=== PATIENT | female | born 1950 | race Hispanic/Latino ===

== ENCOUNTER 2017-10-18 17:16 | Emergency (ER) | payer MEDICARE ==
[2017-10-18 17:17] VITALS: BMI 30.4
--- NOTE | 2017-10-18 17:50 | ED PDOC ---
Arrival/HPI - General Chief Complaint: Anxiety Time Seen by Provider: 10/18/17 17:30 Historian: Patient - History of Present Illness Narrative History of Present Illness (Text): 10/18/17 17:38 A 67 year old female, whose past medical history includes URI, myasthenia gravis and non-Hodgkins lymphoma s/p chemo, presents to the emergency department complaining of pressure-like chest discomfort bilaterally. Patient reports her cat last night and afterwards patient began experiencing symptom. Episode lasted approximately 30 minutes. She notes called Dr. Yoon and had EKG performed, which revealed normal findings. Patient was recommended to visit the [place] ER for further evaluation. She mentions having anxiety in the past. Patient denies any shortness of breath, palpitations, cough , fever, or any other complaints. Also, patient mentions taking physical therapy due to last visit (08/24/2017) with chief complaint of mechanical falls and diagnosed with mild CVA at the time. PMD: Dr. 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 SITE INFECTION - Pulmonary Hx Respiratory Disorders: No - Neurological HX Cerebrovascular Accident: Yes (07/2017) Hx Syncope: Yes - HEENT Other/Comment: wears eyeglass - Renal Hx Renal Disorder: No - Endocrine/Metabolic Hx Endocrine Disorders: No - Hematological/Oncological Hx Cancer: Yes (BONE MALIGNANCY) Hx Lymphoma: Yes - Integumentary Hx Dermatological Disorder: No - Musculoskeletal/Rheumatological Hx Musculoskeletal Disorders: Yes (Bone cancer, on chemo) Hx Falls: Yes Other/Comment: inclusion body myositis - Gastrointestinal Hx Gastrointestinal Disorders: No - Genitourinary/Gynecological Hx Genitourinary Disorders: No - Psychiatric Hx Psychophysiologic Disorder: No Hx Substance Use: No - Surgical History Other/Comment: Thymectomy, 15 yrs ago; Biopsy on right ankle - Anesthesia Hx Anesthesia: Yes Hx Anesthesia Reactions: No Hx Malignant Hyperthermia: No Family/Social History - Physician Review Nursing Documentation Reviewed: Yes Family/Social History: No Known Family HX Smoking Status: Former Smoker Hx Alcohol Use: No Hx Substance Use: No Allergies/Home Meds Allergies/Adverse Reactions: Allergies codeine Allergy (Verified 10/18/17 17:30) RASH Penicillins Allergy (Verified 10/18/17 17:30) RASH Review of Systems - Physician Review All systems were reviewed & negative as marked: Yes - Review of Systems Constitutional: absent: Fevers Respiratory: absent: SOB, Cough Cardiovascular: Chest Pain (bilateraly pressure-like chest discomfort). absent : Palpitations Physical Exam Vital Signs Reviewed: Yes Vital Signs Temp Pulse Resp BP Pulse Ox 10/18/17 22:17 88 20 125/72 97 10/18/17 17:41 98.1 F 95 H 21 117/65 100 Temperature: Afebrile Blood Pressure: Normal Pulse: Regular Respiratory Rate: Normal Appearance: Positive for: Well-Appearing Pain Distress: None Mental Status: Positive for: Alert and Oriented X 3 - Systems Exam Head: Present: Atraumatic, Normocephalic Pupils: Present: PERRL Extroacular Muscles: Present: EOMI Conjunctiva: Present: Normal Mouth: Present: Moist Mucous Membranes Neck: Present: Normal Range of Motion Respiratory/Chest: Present: Clear to Auscultation, Good Air Exchange. No: Respiratory Distress, Accessory Muscle Use Cardiovascular: Present: Regular Rate and Rhythm, Normal S1, S2. No: Murmurs Abdomen: Present: Normal Bowel Sounds. No: Tenderness, Distention, Peritoneal Signs Back: Present: Normal Inspection Upper Extremity: Present: Normal Inspection. No: Cyanosis, Edema Lower Extremity: Present: Normal Inspection. No: Edema Neurological: Present: GCS=15, CN II-XII Intact, Speech Normal Skin: Present: Warm, Dry, Normal Color. No: Rashes Psychiatric: Present: Alert, Oriented x 3, Normal Insight, Normal Concentration Medical Decision Making ED Course and Treatment: 10/18/17 17:42 Impression: 67 year old female with pressure-like chest discomfort bilaterally. Differential Diagnosis included but are not limited to: Chest pain rule out Anxiety vs. ACS Plan: -- EKG -- Chest X-ray -- Labs -- Reassess and disposition Prior Visits: Notes and results from previous visits were reviewed. Patient was last seen in the emergency department on 08/24/2017 for mechanical falls. Patient was admitted. Progress Notes: EKG: Ordered, reviewed, and independently interpreted the EKG. Rate : 94 BPM Rhythm : NSR Interpretation : No ST-segment elevations. Comparison : No previous EKG for comparison. 10/18/17 21:44 DEAN Score of 1. Heart Score of 2. Patient is at a very low risk for cardiac cause of chest pain. She was observed in the ED with no chest pain for over 3 hours. She had no changes that were concerning on the court monitor. Chest X-ray reveals to be negative and Troponin is negative x 2. I have discussed the results and plan with the patient, who expresses understanding. Patient in agreement with plan to be discharged home. Patient will follow up with Dr. Laguerre and I recommended she make sure she follows up with a machine container washer. I referred her to Dr. Mora. - Lab Interpretations Lab Results: 10/18/17 18:15 10/18/17 18:15 Lab Results 10/18/17 21:00: Lactate Dehydrogenase 346, Total Creatine Kinase 22 L, Troponin I < 0.01 10/18/17 18:15: Sodium 143, Potassium 3.9, Chloride 103, Carbon Dioxide 30, Anion Gap 13, BUN 15, Creatinine 0.7, Est GFR ( Amer) > 60, Est GFR (Non- Af Amer) > 60, Random Glucose 103, Calcium 10.8 H, Magnesium 1.4 L, Total Bilirubin 0.8, AST 48 H D, ALT 35, Alkaline Phosphatase 63, Lactate Dehydrogenase 351, Total Creatine Kinase 24 L, Troponin I < 0.01, Total Protein 7.6, Albumin 3.6, Globulin 4.0, Albumin/Globulin Ratio 0.9 L 10/18/17 18:15: WBC 5.4, RBC 5.73, Hgb 14.1, Hct 43.7, MCV 76.3 L, MCH 24.6 L, MCHC 32.3, RDW 20.3 H, Plt Count 219, MPV 9.6, Gran % 49.0 L, Lymph % (Auto) 36.1 H, Coke % (Auto) 11.9 H, Eos % (Auto) 2.4, Baso % (Auto) 0.6, Gran # 2.64, Lymph # (Auto) 1.9, Coke # (Auto) 0.6, Eos # (Auto) 0.1, Baso # (Auto) 0.03 - RAD Interpretation Radiology Orders: 10/18/17 17:42 CHEST PORTABLE [RAD] Stat - Medication Orders Current Medication Orders: Discontinued Medications Magnesium Oxide (Mag-Ox) 400 mg PO STAT STA Stop: 10/18/17 18:47 DEAN Risk Score for UA/NSTEMI - DEAN Risk Score Age > 64: YES 3 or more CAD Risk Factors: NO Known CAD (Stenosis greater than 50%): NO Aspirin use in past 7 days: NO Severe Angina: NO EKG ST changes greater than 0.5mm: NO Positive Cardiac Marker: NO DEAN Score: 1 % risk at 14 days of: all cause mortality, new or recurrent LA, or severe recurrent ischemia requiring urgen revascularization: 5% - Scribe Statement The provider has reviewed the documentation as recorded by the Fahad Vega Provider Scribe Attestation: All medical record entries made by the Scribe were at my direction and personally dictated by me. I have reviewed the chart and agree that the record accurately reflects my personal performance of the history, physical exam, medical decision making, and the department course for this patient. I have also personally directed, reviewed, and agree with the discharge instructions and disposition. Disposition/Present on Arrival - Present on Arrival Any Indicators Present on Arrival: No History of DVT/PE: No History of Uncontrolled Diabetes: No Urinary Catheter: No History of Decub. Ulcer: No History Surgical Site Infection Following: None - Disposition Have Diagnosis and Disposition been Completed?: Yes Diagnosis: Chest pain Disposition: HOME/ ROUTINE Disposition Time: 22:28 Patient Plan: Discharge Condition: IMPROVED Discharge Instructions (ExitCare): Chest Pain (ED) Additional Instructions: Arleen, thank you for letting us take care of you today. Your provider was Dr. Calderon. You were treated for Dr. Ny Cruz. The emergency medical care you received today was directed at your acute symptoms. If you were prescribed any medication, please fill it and take as directed. It may take several days for your symptoms to resolve. Return to the Emergency Department if your symptoms worsen, do not improve, or if you have any other problems. Please contact your doctor or call one of the physicians/clinics you have been referred to that are listed on the Patient Visit Information form that is included in your discharge packet. Bring any paperwork you were given at discharge with you along with any medications you are taking to your follow up visit. Our treatment cannot replace ongoing medical care by a primary care provider (PCP) outside of the emergency department. Thank you for allowing the [facility] team to be part of your care today. If you had an X-Ray or CT scan: A Radiologist will review the ED reading if any change in treatment is needed we will contact you. If you had a blood, urine, or wound culture: It will take several days for the results, if any change in treatment is needed we will contact you. If you had an STI test: It will take 48 hours for the results. Please call after 1 week if you have not heard back. Referrals: Adrien Laguerre MD [Family Provider] - Follow up with primary Forms: [employer] (Chinese), WORK NOTE
[2017-10-18 17:54] VITALS: TEMP 98.1
[2017-10-18 18:33] LABS: BASO # 0.03 K/mm3 (0.0-2.0); BASO % 0.6 % (0.0-3.0); EOS # 0.1 (0.0-0.7); EOS % 2.4 % (1.5-5.0); GRAN # 2.64 (1.4-6.5); HEMOGLOBIN 14.1 g/dL (12.0-16.0); LYMPH # 1.9 (1.2-3.4); LYMPH % 36.1 % (22.0-35.0); MEAN CELL VOLUME 76.3 fl (80.0-105.0); MEAN CORPUSCULAR HEMOGLOBIN 24.6 pg (25.0-35.0); MEAN CORPUSCULAR HGB CONC 32.3 g/dl (31.0-37.0); MEAN PLATELET VOLUME 9.6 fl (7.0-11.0); MONO # 0.6 (0.1-0.6); MONO % 11.9 % (1.0-6.0); RBC 5.73 10^6/uL (3.5-6.1); RED CELL DISTRIBUTION WIDTH 20.3 % (11.5-14.5); WHITE BLOOD COUNT 5.4 10^3/ul (4.5-11.0)
[2017-10-18 18:45] LABS: ALB/GLOB RATIO 0.9 (1.1-1.8); ALBUMIN 3.6 g/dL (3.0-4.8); ALT/SGPT 35 U/L (7-56); AST/SGOT 48 U/L (14-36); BLOOD UREA NITROGEN 15 mg/dL (7-21); CALCIUM 10.8 mg/dL (8.4-10.5); GFR AFRICAN-AMERICAN > 60; GFR NON-AFRICAN AMERICAN > 60; MAGNESIUM 1.4 mg/dL (1.7-2.2)
[2017-10-18] MEDS ORDERED: Magnesium Oxide 400 mg Tab UD PO STA (18:46)
[2017-10-18 18:56] LABS: TROPONIN I < 0.01 ng/mL
--- NOTE | 2017-10-18 20:45 | CARD ---
APPROVED REPORT EKG Measurement Heart [id number] <Conclusion> Normal sinus rhythm Possible Lateral infarct, age undetermined Abnormal ECG
[2017-10-18 21:43] LABS: TROPONIN I < 0.01 ng/mL
[2017-10-18 22:18] VITALS: BP 125/72; PULSE 88; RESP 20; O2SAT 97
--- NOTE | 2017-10-19 07:30 | RAD ---
HISTORY: chest pain COMPARISON: Portable chest 01/16/2012 FINDINGS: An interval right MediPort is identified placed via an apparent right subclavian approach with the tip terminating at the superior vena cava. Sternotomy wires again noted. LUNGS: History volume appears somewhat increased. No acute infiltrate identified bilaterally. PLEURA: No significant pleural effusion identified, no pneumothorax apparent. CARDIOVASCULAR: Normal. OSSEOUS STRUCTURES: No significant abnormalities. VISUALIZED UPPER ABDOMEN: Normal. OTHER FINDINGS: None. IMPRESSION: No appreciable acute cardiopulmonary disease. Interval MediPort deployment as discussed above.
== END 2017-10-18 22:28 | disposition home or self-care (01) ==
LOC: ED 17:16
DX: R07.9 Chest pain, unspecified (principal); Z87.891 Personal history of nicotine dependence

== ENCOUNTER 2018-02-22 07:20 | Day surgery (SDC) | payer MEDICARE ==
[2018-02-13 12:19] VITALS: BMI 28.3
[2018-02-22 07:56] VITALS: O2SAT 97
[2018-02-22] MEDS ORDERED: Propofol 10 mg/ml Inj (20 ML) ONE (08:27)
[2018-02-22] MEDS ORDERED: Sodium Chloride 0.9% 1,000 ML IV SCH (08:30)
[2018-02-22 10:04] VITALS: BP 144/78; PULSE 59; RESP 18; TEMP 97.4
== END 2018-02-22 10:41 | disposition home or self-care (01) ==
LOC: ENDO 07:20
PROVIDERS: ATTEND Specialist
DX: K63.5 Polyp of colon (principal); D12.7 Benign neoplasm of rectosigmoid junction; D17.5 Benign lipomatous neoplasm of intra-abdominal organs; A63.0 Anogenital (venereal) warts; K57.30 Diverticulosis of large intestine without perforation or abscess without bleeding; K64.8 Other hemorrhoids; K64.4 Residual hemorrhoidal skin tags; G70.00 Myasthenia gravis without (acute) exacerbation; I25.10 Atherosclerotic heart disease of native coronary artery without angina pectoris; I25.2 Old myocardial infarction; Z85.71 Personal history of Hodgkin lymphoma
CPT/HCPCS: 45380; 45385; 88305; J2704; J7030; J7040